=== PATIENT | female | born 1960 | race Caucasian/White ===

== ENCOUNTER 2016-06-30 21:43 | Emergency (ER) | payer OTHER ==
[2016-06-30 22:25] VITALS: O2SAT 96
--- NOTE | 2016-06-30 23:02 | ERPHSYRPT ---
- History of Present Illness Time Seen by Provider: 06/30/16 22:51 Source: patient, family Exam Limitations: no limitations Patient Subjective Stated Complaint: pt using dinning chairs as a baby gait, was on way to [place] lighting was dark and pt tripped and fell on her right side onto the chairs Triage Nursing Assessment: Pt c/o right side pain s/p fall this evening. Pt A&O x3, denies any SOB presently spo2 96% on RA, breath sounds clear throughout, [place]/warm dry, skin on right side shows no bruising at this time. However, can pick out red markings of the side of the chair that she fell on Physician History: 55-year-old white female arrives with complaint of pain in right anterior lateral ribs symptoms since 9:00 this evening. According to the patient she was walking she had been using chairs as a baby gait she apparently tripped over the chairs and landed on the chair striking her right anterior lateral ribs. Patient is complaining of pain in the right anterior ribs worse with movement she is not having any problems breathing she has no abdominal pain she has no dysuria or hematuria. Past medical history includes bipolar depression, high blood pressure, diabetes , anxiety, GERD. Past surgical history includes tubal ligation. Occurred: just prior to arrival (9:00 this evening) Reason for Fall: tripped (tripped over 2 chairs she used is a baby gatee), fell from standing pos Injuries/Pain Location: chest (Pain right anterior lateral ribs) Loss of Consciousness: no loss of consciousness Severity of Pain-Max: moderate Severity of Pain-Current: moderate Modifying Factors: Improves With: nothing Associated Symptoms (Fall): chest pain (pain right anterior ribs and right lateral ribs), No abdominal pain, No back pain, No confusion, No dizziness, No extremity injury, No headache, No lightheadedness, No muscle spasms, No nausea, No neck pain, No ringing in ears, No seizures, No shortness of breath, No slurred speech, No trouble walking, No vomiting, No vision changes Allergies/Adverse Reactions: ciprofloxacin [From Cipro] Allergy (Severe, Verified 06/30/16 22:42) Hives nausea azithromycin [From Zithromax] Adverse Reaction (Severe, Verified 06/30/16 22:42) Hives metformin Adverse Reaction (Severe, Verified 06/30/16 22:42) Diarrhea sulfamethoxazole [From Bactrim] Adverse Reaction (Severe, Verified 06/30/16 22: 42) Hives trimethoprim [From Bactrim] Adverse Reaction (Severe, Verified 06/30/16 22:42) Hives Home Medications: Aspirin 81 mg PO DAILY 11/06/14 [History] Cetirizine HCl [Zyrtec] 10 mg PO DAILY 11/06/14 [History] Clonazepam [Klonopin] 1 mg PO BID PRN 11/06/14 [History] Duloxetine HCl [Cymbalta] 60 mg PO DAILY 11/06/14 [History] Famotidine 20 mg [Pepcid 20 MG] 20 mg PO DAILY 11/06/14 [History] Glipizide 5 mg [Glucotrol 5 MG] 5 mg PO DAILY 11/06/14 [History] Lisinopril/Hydrochlorothiazide [Lisinopril-Hctz 20-25 mg Tab] 1 each PO DAILY [History] Tramadol HCl 50 mg [Ultram 50 mg] 50 mg PO Q6HPRN PRN 11/06/14 [History] Albuterol Sulfate [Proair Respiclick] 90 mcg IH [id number] PRN 06/30/16 [History] Aspirin [Aspirin EC] 81 mg PO DAILY 06/30/16 [History] Linagliptin [Tradjenta] 5 mg PO DAILY 06/30/16 [History] Pravastatin Sodium [Pravachol] 40 mg PO DAILY 06/30/16 [History] Hx Tetanus, Diphtheria Vaccination/Date Given: Yes Hx Influenza Vaccination/Date Given: No Hx Pneumococcal Vaccination/Date Given: No Immunizations Up to Date: Yes - Review of Systems Constitutional: No Fever, No Chills Eyes: No Symptoms Ears, Nose, & Throat: No Symptoms Respiratory: Other (pain right anterior and lateral ribs), No Cough, No Cyanosis , No Dyspnea, No Dyspnea on Exertion (MORA), No Stridor, No Wheezing Cardiac: Chest Pain (pain right anterior and lateral ribs with palpation and movement), No Edema, No Palpitations, No Syncope, No Orthopnea Abdominal/Gastrointestinal: No Abdominal Pain, No Nausea, No Vomiting, No Diarrhea Genitourinary Symptoms: No Dysuria Musculoskeletal: Fall, Other (pain right anterior lateral ribs with palpation and movement), No Back Pain, No Neck Pain Skin: No Rash Neurological: No Dizziness, No Focal Weakness, No Sensory Changes Psychological: No Symptoms Endocrine: No Symptoms All Other Systems: Reviewed and Negative - Past Medical History Pertinent Past Medical History: Yes Cardiac History: Hypertension Endocrine Medical History: Diabetes Type II GI Medical History: GERD Psycho-Social History: Anxiety, Depression - Past Surgical History Past Surgical History: Yes Female Surgical History: Tubal Ligation - Social History Smoking Status: Former smoker Exposure to second hand smoke: No Drug Use: none Patient Lives Alone: No - Female History Hx Last Menstrual Period: post - Nursing Vital Signs Nursing Vital Signs: Initial Vital Signs Temperature 97.9 F Temperature Source Oral Pulse Rate 75 Respiratory Rate 14 Pain Intensity 8 - Terril Coma Score Best Eye Response (Terril): (4) open spontaneously Best Verbal Response (Starla): (5) oriented Best Motor Response (Starla): (6) obeys commands [place] Total: 15 - Physical Exam General Appearance: moderate distress Head Injury: no evidence of injury Eye Exam: PERRL/EOMI ENT Exam: airway nml Neck Exam: normal inspection, No tenderness Respiratory/Chest Exam: normal breath sounds, rib tenderness (right anterior and lateral ribstend5.er with palpation and movement), No chest tenderness, No respiratory distress Cardiovascular Exam: normal heart sounds, regular rate/rhythm Gastrointestinal Exam: soft, No tenderness, No distention, No guarding, No ecchymosis Back Exam: normal inspection, No vertebral tenderness Extremity Exam: normal inspection, normal range of motion, pelvis stable, No deformities Peripheral Pulses: dorsalis-pedis (R): 2+, dorsalis-pedis (L): 2+ Neurologic Exam: alert, oriented x 3, cooperative, sensation nml, No motor deficits Skin Exam: normal color, warm, dry SpO2 Interpretation: normal (96%) SpO2: 96 Oxygen Delivery: Room Air - Course Nursing assessment & vital signs reviewed: Yes - Radiology Exams Right Ribs X-ray Interpretation: Interpreted by me, Negative, No Fracture Chest X-ray Interpretation: Interpreted by me, No Fracture, No Pneumonia, No Pneumothorax, Other (no acute disease process noted) Ordered Tests: Active Orders 24 hr Category Date Time Status CHEST 1 VIEW (PORTABLE) Stat Exams 06/30/16 22:55 Taken RIBS UNILATERAL Stat Exams 06/30/16 22:55 Taken CULTURE,URINE Stat Lab 07/01/16 00:26 Ordered UA W/ MICROSCOPIC Stat Lab 06/30/16 00:02 Completed Lab/Rad Data: Laboratory Results 06/30/16 Range/Units 00:02 Ur Collection Type CLEAN CATCH Urine Color YELLOW (YELLOW) Urine Appearance CLEAR (CLEAR) Urine pH 5.5 (5-6) Ur Specific [place] >=1.030 (1.005-1.025) Urine Protein 30 (Negative) Urine Glucose (UA) 100 (NEGATIVE) mg/dL Urine Ketones NEGATIVE (NEGATIVE) Urine Nitrite NEGATIVE (NEGATIVE) Urine Bilirubin NEGATIVE (NEGATIVE) Urine Urobilinogen 0.2 (0-1) mg/dL Urine WBC (Auto) TRACE (NEGATIVE) Urine RBC (Auto) NEGATIVE (0-5) Gerry/ul Urine Microscopic RBC 2-5 (0-2) /HPF Urine Microscopic WBC 25-50 (0-5) /HPF Ur Epithelial Cells MODERATE (FEW) /HPF Urine Bacteria MANY (NEGATIVE) /HPF Urine Mucus MODERATE (NEGATIVE) /HPF Specimen Received 07/01/16 0005 - Progress Progress: improved Progress Note: 06/30/16 23:02 This is a 55-year-old morbidly obese white female with history of diabetes high blood pressure anxiety depression and GERD. She arrives with complaint of pain in the right anterior ribs after falling at home at approximately 9 PM she states she tripped over a chair and landed on the chair she has pain with palpation movement breathing in the right anterior lateral ribs she is not short of breath she has no abdominal pain no nausea no vomiting. Denies other complaints. Patient is offered morphine ordered Toradol injection for pain she states she really doesn't want pain medications at this time she is on tramadol and clonazepam at home. She does want x-rays of her ribs Will also obtain a urinalysis on this patient. . 06/30/16 23:57 Patient's x-ray right ribs chest x-ray both negative for fractures no pneumothorax no pneumonias Patient does not want any pain medications at this time appears to be stable and not in acute distress. Awaiting urinalysis. 07/01/16 00:28 Patient's urine shows 25-50 white cells and 2-5 red cells per high-power field. Patient does not appear to be in acute distress. Will write for Macrobid to treat the patient's urine cultures are pending. Patient does not want any pain medications at this time. Or any prescriptions for pain medications at this time. - Departure Time of Disposition: 00:28 Departure Disposition: Home Clinical Impression: Rib pain on right side Accidental fall Qualifiers: Encounter type: initial encounter Qualified Code(s): W19.XXXA - Unspecified fall, initial encounter Contusion of rib on right side Qualifiers: Encounter type: initial encounter Qualified Code(s): S20.211A - Contusion of right front wall of thorax, initial encounter UTI (urinary tract infection) Qualifiers: Hematuria presence: without hematuria Condition: Fair Critical Care Time: No Instructions: Rib Contusion Additional Instructions: Return home. Plenty of fluids. Cold packs to contused areas 24-48 hours. Pain medications as prescribed by your family doctor or Tylenol as needed for pain. Macrobid 100 mg orally twice a day for 10 days. Follow-up with your family doctor. Return for acute distress or for severe symptoms. Prescriptions: Nitrofurantoin Macro 100 mg [Macrobid 100MG Capsule] 100 mg PO BID #20 capsule
[2016-07-01 00:17] LABS: COMPLETE URINE MICROSCOPIC? YES; Collection Type CLEAN CATCH; Mucus MODERATE /HPF (NEGATIVE); Ph 5.5 (5-6)
[2016-07-01 00:18] LABS: Bacteria MANY /HPF (NEGATIVE); Epithelial Cells MODERATE /HPF (FEW); WBC 25-50 /HPF (0-5)
[2016-07-01] MEDS ORDERED: Macrobid 100MG Capsule PO ONE (00:31)
[2016-07-01] MEDS ORDERED: Macrobid 100MG Capsule ONE (00:39)
[2016-07-01 01:00] VITALS: BP 145/67; PULSE 76
--- NOTE | 2016-07-01 09:48 | XRAY ---
Indication: Right-sided pain following fall. Comparison: November 05, 2007. Single frontal chest again demonstrates normal heart and lungs. Bony thorax intact.
--- NOTE | 2016-07-01 09:51 | XRAY ---
Indication: Pain following fall. Comparison: August 02, 2009. 2 views of the right ribs obtained. Again no bony, articular, or soft tissue abnormalities.
== END 2016-07-01 01:00 | disposition home or self-care (01) ==
LOC: ED 21:43
DX: R07.81 Pleurodynia (principal); S20.211A Contusion of right front wall of thorax, initial encounter; W19.XXXA Unspecified fall, initial encounter; N39.0 Urinary tract infection, site not specified
CPT/HCPCS: 71010; 71100; 81000; 87086; 99283; A9270-GY

== ENCOUNTER 2016-11-01 12:30 | Emergency (ER) | payer OTHER ==
[2016-11-01 12:40] VITALS: BP 131/80; PULSE 87; O2SAT 97
--- NOTE | 2016-11-01 13:30 | ERPHSYRPT ---
- History of Present Illness Time Seen by Provider: 11/01/16 13:25 Source: patient Exam Limitations: no limitations Patient Subjective Stated Complaint: pt states 2 days ago she stubbed 2nd and 3rd toes. pt states pain is not any better. Triage Nursing Assessment: pt pink, warm, dry. no bruising or swelling present. pedal pulse strong. Physician History: 55-year-old white female arrives with complaint of pain in her right second and third toe symptoms for 2 days she states she stubbed her toes she states continues to have pain in the toes she states she has some paresthesias in the toes as well. Past medical history includes diabetes type 2, high blood pressure, GERD, anxiety, depression Past surgical history includes tubal ligation Method of Injury: other (stubbed her toes right foot) Occurred: days ago (2 days ago) Quality: constant Severity of Pain-Max: moderate Severity of Pain-Current: mild Lower Extremities Pain: 2nd toe: right, 3rd toe: right Modifying Factors: Improves With: nothing Associated Symptoms: other (paresthesias right second and third toes) Allergies/Adverse Reactions: ciprofloxacin [From Cipro] Allergy (Severe, Verified 11/01/16 12:56) Hives nausea azithromycin [From Zithromax] Adverse Reaction (Severe, Verified 11/01/16 12:56) Hives metformin Adverse Reaction (Severe, Verified 11/01/16 12:56) Diarrhea sulfamethoxazole [From Bactrim] Adverse Reaction (Severe, Verified 11/01/16 12: 56) Hives trimethoprim [From Bactrim] Adverse Reaction (Severe, Verified 11/01/16 12:56) Hives Home Medications: Cetirizine HCl [Zyrtec] 10 mg PO DAILY 11/06/14 [History] Clonazepam [Klonopin] 1 mg PO BID PRN 11/06/14 [History] Duloxetine HCl [Cymbalta] 60 mg PO DAILY 11/06/14 [History] Famotidine 20 mg [Pepcid 20 MG] 20 mg PO DAILY 11/06/14 [History] Glipizide 5 mg [Glucotrol 5 MG] 10 mg PO DAILY 11/06/14 [History] Lisinopril/Hydrochlorothiazide [Lisinopril-Hctz 20-25 mg Tab] 1 each PO DAILY [History] Tramadol HCl 50 mg [Ultram 50 mg] 50 mg PO Q6HPRN PRN 11/06/14 [History] Albuterol Sulfate [Proair Respiclick] 90 mcg IH [id number] PRN 06/30/16 [History] Aspirin [Aspirin EC] 81 mg PO DAILY 06/30/16 [History] Linagliptin [Tradjenta] 5 mg PO DAILY 06/30/16 [History] Pravastatin Sodium [Pravachol] 40 mg PO DAILY 06/30/16 [History] Albuterol Sulfate [Ventolin Hfa] 18 gm IH DAILY 11/01/16 [History] Hx Tetanus, Diphtheria Vaccination/Date Given: Yes (up to date) Hx Influenza Vaccination/Date Given: No Hx Pneumococcal Vaccination/Date Given: No Immunizations Up to Date: Yes - Review of Systems Constitutional: No Fever, No Chills Eyes: No Symptoms Ears, Nose, & Throat: No Symptoms Respiratory: No Cough, No Dyspnea Cardiac: No Chest Pain, No Edema, No Syncope Abdominal/Gastrointestinal: No Abdominal Pain, No Nausea, No Vomiting, No Diarrhea Genitourinary Symptoms: No Dysuria Musculoskeletal: Other (pain right second and third toes) Skin: No Rash Neurological: No Dizziness, No Focal Weakness, No Sensory Changes Psychological: No Symptoms Endocrine: No Symptoms All Other Systems: Reviewed and Negative - Past Medical History Pertinent Past Medical History: Yes Cardiac History: Hypertension Endocrine Medical History: Diabetes Type II GI Medical History: GERD Psycho-Social History: Anxiety, Depression - Past Surgical History Past Surgical History: Yes Female Surgical History: Tubal Ligation - Social History Smoking Status: Former smoker Exposure to second hand smoke: No Drug Use: none Patient Lives Alone: No - Nursing Vital Signs Nursing Vital Signs: Initial Vital Signs Temperature 98.0 F 11/01/16 12:39 Pulse Rate 87 11/01/16 12:39 Respiratory Rate 18 11/01/16 12:39 Blood Pressure 131/80 11/01/16 12:39 O2 Sat by Pulse Oximetry 97 11/01/16 12:39 Pain Scale Pain Intensity 0 - Physical Exam General Appearance: alert Eyes, Ears, Nose, Throat Exam: moist mucous membranes Neck Exam: non-tender, supple Cardiovascular/Respiratory Exam: chest non-tender, normal breath sounds, regular rate/rhythm, no respiratory distress Gastrointestinal/Abdominal Exam: non-tender, guarding Hips Exam: bilateral: non-tender, normal inspection, normal range of motion, no evidence of injury Legs Exam: bilateral leg: non-tender, normal inspection, normal range of motion , no evidence of injury Knees Exam: bilateral knee: non-tender, normal inspection, normal range of motion, no evidence of injury Ankle Exam: bilateral ankle: non-tender, normal inspection, normal range of motion, no evidence of injury Foot Exam: right foot: other (left second and third toetender with palpation and movement, decreased range of motion left second and third toe secondary to pain, good capillary refill all toes, sensation intact to all toes), left foot: non-tender, normal inspection, normal range of motion DTR - Lower Extremities Exam: ankle (R): 2+, ankle (L): 2+ Neuro/Tendon Exam: normal sensation, normal motor functions Mental Status Exam: alert, oriented x 3, cooperative Skin Exam: normal color, warm, dry SpO2 Interpretation: normal (97%) SpO2: 97 Oxygen Delivery: Room Air - Course Nursing assessment & vital signs reviewed: Yes - Radiology Exams Right Foot X-ray Interpretation: Interpreted by me, Other (x-ray right foot: Nondisplaced fracture (oblique) right third proximal phalanx) Ordered Tests: Active Orders 24 hr Category Date Time Status FOOT (MINIMUM 3 VIEWS) Stat Exams 11/01/16 13:25 Taken - Progress Progress: improved Progress Note: 11/01/16 14:26 55-year-old white female arrives with complaint of pain in the right second and third toes for 2 days patient states she stubbed her toes she is noting pain which does not go away she has had some paresthesia of the right second and third toe. She denies any other complaints she states she does not want any pain medication she states she has pain medications at home she does not want any pain medications given in the emergency room. X-ray of the right third toe shows an oblique fracture through the right third proximal phalanx nondisplaced.. I have asked the patient's paramedics/nurse to sanjay tape the right second third and fourth toes patient already has a postop shoe. Will discharge patient and give patient a referral to Dr. Sauer she is to call his office and arrange an appointment. - Departure Time of Disposition: 14:28 Departure Disposition: Home Clinical Impression: Fracture of third toe, right, closed Qualifiers: Encounter type: initial encounter Qualified Code(s): S92.501A - Displaced unspecified fracture of right lesser toe(s), initial encounter for closed fracture Condition: Fair Critical Care Time: No Referrals: MARCIAL GUPTA MD [Primary Care Provider] - MATTEO SAUER [ACTIVE STAFF] - Instructions: Foot Fracture Additional Instructions: Return home. Ice and elevate your right foot 24-48 hours. Use postop shoe. Follow-up with Dr. Sauer. Call for an appointment Tylenol every 4 hours or Motrin every 6 hours as needed for pain.
--- NOTE | 2016-11-01 14:35 | XRAY ---
Exam: 3 views the right foot from 11/01/2016. Comparison: 3 views of the right foot from 06/28/2011. Indication: Stubbed third and fourth toes 2 days ago. Findings: AP, oblique, and lateral radiographs of the right foot were obtained. There is an acute oblique, nondisplaced fracture across the proximal shaft portion of the proximal phalanx of the right third toe. No malalignment is seen. The MTP joints and interphalangeal joints appear unremarkable. The remainder of the right foot reveals no other fracture or dislocation. There is moderate plantar and posterior right calcaneal spurring. The plantar right calcaneal spur appears larger than that seen on 06/28/2011. No radiopaque soft tissue foreign body is seen. Impression: 1. Essentially nondisplaced, oblique fracture of the proximal shaft portion of the proximal phalanx of the right third toe. No malalignment or involvement of the MTP joint or PIP joint is seen. 2. No other acute fracture or dislocation of the right foot is seen. 3. Moderate sized plantar and posterior right calcaneal spurring is seen.
== END 2016-11-01 15:12 | disposition home or self-care (01) ==
LOC: ED 12:30
DX: S92.501A Displaced unspecified fracture of right lesser toe(s), initial encounter for closed fracture (principal); E11.9 Type 2 diabetes mellitus without complications; I10 Essential (primary) hypertension; F41.9 Anxiety disorder, unspecified; W22.8XXA Striking against or struck by other objects, initial encounter; R20.2 Paresthesia of skin
CPT/HCPCS: 73630; 99283

== ENCOUNTER 2018-10-06 14:56 | Emergency (ER) | payer OTHER ==
[2018-10-06] MEDS ORDERED: Pepcid 20 MG VIAL IV ONE ×2 (15:06→15:36)
[2018-10-06] MEDS ORDERED: solu-MEDROL 125 MG IV ONE (15:06)
[2018-10-06] MEDS ORDERED: BENADRYL 50 MG/ML IV ONE (15:06)
[2018-10-06] MEDS ORDERED: DUONEB 0.5-3 MG/3 ml Neb IH ONE ×2 (15:06→15:35)
[2018-10-06] MEDS ORDERED: Sodium Chloride 0.9% 1000 ML 1,000 ML IV STA (15:06)
[2018-10-06 15:26] LABS: BASOPHIL % 0.5 % (0.0-0.4); Basophil (Absolute #) 0.07 (0-0.4); Eosinophil % 1.2 % (0.00-5.0); Eosinophil (Absolute #) 0.18 (0-0.5); Granulocyte Absolute (ANC) 8.93 (1.4-6.9); Granulocytes % 60.7 % (36.0-66.0); Hematocrit 44.8 % (35-47); Hemoglobin 15.6 gm/dl (12.0-16.0); Lymphocyte (Absolute #) 4.43 (1.0-4.6); Lymphocytes % 30.1 % (24.0-44.0); Mean Cell Volume 89.6 fl (78-100); Mean Corpuscular Hemoglobin 31.2 pg (26-32); Mean Corpuscular Hgb Concent. 34.8 g/dl (32-36); Mean Platelet Volume 11.5 fl (6-9.5); Monocyte (Absolute #) 1.11 (0.0-1.3); Monocytes % 7.5 % (0.0-12.0); Platelet Count 306 K/mm3 (150-450); Red Cell Distribution Width 13.9 % (11.5-14.0); White Blood Count 14.7 K/mm3 (4.0-10.5)
[2018-10-06] MEDS ORDERED: BENADRYL 50 MG/ML ONE (15:36)
[2018-10-06] MEDS ORDERED: solu-MEDROL 125 MG ONE (15:36)
[2018-10-06] MEDS ORDERED: Sodium Chloride 0.9% 1000 ML 1,000 ML ONE (15:36)
[2018-10-06 16:12] LABS: ALBUMIN 4.2 g/dL (3.5-5.0); ALKALINE PHOSPHATASE 107 U/L (38-126); BLOOD UREA NITROGEN 18 mg/dL (7-17); CHLORIDE 102 mmol/L (98-107); Calcium 9.7 mg/dL (8.4-10.2); Carbon Dioxide 25 mmol/L (22-30); Creatinine 1 0.93 mg/dL (0.52-1.04); Glucose 168 mg/dL (74-106); Potassium 3.6 mmol/L (3.5-5.1); SGOT/AST 25 U/L (14-36); SGPT/ALT 24 U/L (0-35); SODIUM 137 mmol/L (137-145); Total Protein 7.6 g/dL (6.3-8.2)
--- NOTE | 2018-10-06 18:25 | ERPHSYRPT ---
- History of Present Illness Source: patient Exam Limitations: no limitations Patient Subjective Stated Complaint: STUNG BY BEE ON RIGHT SIDE OF FACE AND NOW HAS SWELLING TO FACE AND CHEST FEELS TIGHT Triage Nursing Assessment: AMBULATED TO ROOM PER SELF. SKIN W/D, COLOR NORMAL, RESP NONLABORED. SLIGHT SWELLING NOTED TO RIGHT SIDE OF FACE WITH SMALL RED AREA. BREATH SOUNDS NORMAL, HEART TONES REGULAR. Physician History: Pt is a 57 y/o female that was stung by a bee to the L side of her face. Pt states, she has some numbness of the L side of face, and some chest pressure. Pt denies any difficulty breathing. No palpitations. No N/V/D or abdominal pain. No dysuria, frequency and urgency. Timing/Duration: today Quality: burning, itchy, painful Severity: mild Location: face (on the L face) Possible Causes: insect sting (Bee sting) Associated Symptoms: paresthesia (of the L face) Allergies/Adverse Reactions: ciprofloxacin [From Cipro] Allergy (Severe, Verified 11/01/16 12:56) Hives nausea azithromycin [From Zithromax] Adverse Reaction (Severe, Verified 11/01/16 12:56) Hives metformin Adverse Reaction (Severe, Verified 11/01/16 12:56) Diarrhea sulfamethoxazole [From Bactrim] Adverse Reaction (Severe, Verified 11/01/16 12: 56) Hives trimethoprim [From Bactrim] Adverse Reaction (Severe, Verified 11/01/16 12:56) Hives Home Medications: Cetirizine HCl [Zyrtec] 10 mg PO DAILY 11/06/14 [History] Duloxetine HCl [Cymbalta] 60 mg PO DAILY 11/06/14 [History] Famotidine 20 mg [Pepcid 20 MG] 20 mg PO DAILY 11/06/14 [History] Glipizide 5 mg [Glucotrol 5 MG] 10 mg PO DAILY 11/06/14 [History] Lisinopril/Hydrochlorothiazide [Lisinopril-Hctz 20-25 mg Tab] 1 each PO DAILY [History] Tramadol HCl 50 mg [Ultram 50 mg] 50 mg PO Q6HPRN PRN 11/06/14 [History] clonazePAM [Klonopin] 1 mg PO BID PRN 11/06/14 [History] Albuterol Sulfate [Proair Respiclick] 90 mcg IH [id number] PRN 06/30/16 [History] Aspirin [Aspirin EC] 81 mg PO DAILY 06/30/16 [History] Linagliptin [Tradjenta] 5 mg PO DAILY 06/30/16 [History] Pravastatin Sodium [Pravachol] 40 mg PO DAILY 06/30/16 [History] Albuterol Sulfate [Ventolin Hfa] 18 gm IH DAILY 11/01/16 [History] Hx Tetanus, Diphtheria Vaccination/Date Given: No Hx Influenza Vaccination/Date Given: No Hx Pneumococcal Vaccination/Date Given: No - Review of Systems Constitutional: No Fever, No Chills Eyes: No Symptoms Ears, Nose, & Throat: No Symptoms Respiratory: No Cough, No Dyspnea Cardiac: No Chest Pain, No Edema, No Syncope Abdominal/Gastrointestinal: No Abdominal Pain, No Nausea, No Vomiting, No Diarrhea Genitourinary Symptoms: No Dysuria Musculoskeletal: No Back Pain, No Neck Pain Neurological: No Dizziness, No Focal Weakness, No Sensory Changes - Past Medical History Pertinent Past Medical History: Yes Cardiac History: Hypertension Endocrine Medical History: Diabetes Type II GI Medical History: GERD Psycho-Social History: Anxiety, Depression - Past Surgical History Past Surgical History: Yes Female Surgical History: Tubal Ligation - Social History Smoking Status: Former smoker Exposure to second hand smoke: No Drug Use: none Patient Lives Alone: No - Female History Hx Now: No - Nursing Vital Signs Nursing Vital Signs: Initial Vital Signs Temperature 98.1 F 10/06/18 14:57 Pulse Rate 92 H 10/06/18 14:57 Respiratory Rate 16 10/06/18 14:57 Blood Pressure 136/89 10/06/18 14:57 O2 Sat by Pulse Oximetry 94 L 10/06/18 14:57 Pain Scale Pain Intensity 0 - Physical Exam General Appearance: no apparent distress, alert Eye Exam: PERRL/EOMI, eyes nml inspection Ears, Nose, Throat Exam: normal ENT inspection, pharynx normal, moist mucous membranes Neck Exam: normal inspection, non-tender, supple, full range of motion Respiratory Exam: normal breath sounds, lungs clear, No respiratory distress Cardiovascular Exam: regular rate/rhythm, normal heart sounds Gastrointestinal/Abdomen Exam: soft, mass, No tenderness Back Exam: normal inspection, normal range of motion, No CVA tenderness, No vertebral tenderness Extremity Exam: normal inspection, normal range of motion Neurologic Exam: alert, oriented x 3, cooperative, normal mood/affect, sensation nml, No motor deficits Skin Exam: normal color, warm, dry, other (small area on the L face where insect sting is seen.) SpO2: 94 - Course EKG Interpreted by Me: RATE (96 bpm), Other (early repolarization) Ordered Tests: Active Orders 24 hr Category Date Time Status CBC W DIFF Stat Lab 10/06/18 15:20 Completed CMP Stat Lab 10/06/18 15:20 Completed TROPONIN Q3H Lab 10/06/18 15:20 Completed TROPONIN Q3H Lab 10/06/18 18:11 Received TROPONIN Q3H Lab 10/06/18 21:15 Ordered Peak Expiratory Flow Rate DAILY RT 10/06/18 07:00 Completed Respiratory Therapy Assessment DAILY RT 10/07/18 07:00 Completed Medication Summary Discontinued Medications Generic Name Dose Route Start Last Admin Trade Name Freq PRN Reason Stop Dose Admin Albuterol/Ipratropium 3 ml 10/06/18 15:06 10/06/18 15:40 Duoneb 0.5-3 Mg/3 Ml Neb IH 10/06/18 15:07 3 ml STAT ONE Administration Albuterol/Ipratropium Confirm 10/06/18 15:35 Duoneb 0.5-3 Mg/3 Ml Neb Administered 10/06/18 15:36 Dose 3 ml IH .STK-MED ONE Diphenhydramine HCl 50 mg 10/06/18 15:06 10/06/18 15:43 Benadryl 50 Mg/Ml IV 10/06/18 15:07 50 mg STAT ONE Administration Diphenhydramine HCl Confirm 10/06/18 15:36 Benadryl 50 Mg/Ml Administered 10/06/18 15:37 Dose 50 mg .ROUTE .STK-MED ONE Famotidine 20 mg 10/06/18 15:06 10/06/18 15:43 Pepcid 20 Mg Vial IV 10/06/18 15:07 20 mg STAT ONE Administration Famotidine Confirm 10/06/18 15:36 Pepcid 20 Mg Vial Administered 10/06/18 15:37 Dose 20 mg IV .STK-MED ONE Sodium Chloride 1,000 mls @ 999 mls/hr 10/06/18 15:06 10/06/18 15:42 Sodium Chloride 0.9% 1000 Ml IV 10/06/18 16:06 999 mls/hr .Q1H1M STA Administration Sodium Chloride Confirm 10/06/18 15:36 Sodium Chloride 0.9% 1000 Ml Administered 10/06/18 15:37 Dose 1,000 mls @ ud .ROUTE .STK-MED ONE Methylprednisolone Sodium Succinate 125 mg 10/06/18 15:06 10/06/18 15:43 Solu-Medrol 125 Mg IV 10/06/18 15:07 125 mg STAT ONE Administration Methylprednisolone Sodium Succinate Confirm 10/06/18 15:36 Solu-Medrol 125 Mg Administered 10/06/18 15:37 Dose 125 mg .ROUTE .STK-MED ONE Lab/Rad Data: Laboratory Result Diagrams 10/06/18 15:20 10/06/18 15:20 Laboratory Results 10/06/18 10/06/18 10/06/18 Range/Units 15:20 15:20 15:20 WBC 14.7 H (4.0-10.5) K/mm3 RBC 5.00 (4.1-5.4) M/mm3 Hgb 15.6 (12.0-16.0) gm/dl Hct 44.8 (35-47) % MCV 89.6 (78-100) fl MCH 31.2 (26-32) pg MCHC 34.8 (32-36) g/dl RDW 13.9 (11.5-14.0) % Plt Count 306 (150-450) K/mm3 MPV 11.5 H (6-9.5) fl Gran % 60.7 (36.0-66.0) % Eos # (Auto) 0.18 (0-0.5) Absolute Lymphs (auto) 4.43 (1.0-4.6) Absolute Monos (auto) 1.11 (0.0-1.3) Lymphocytes % 30.1 (24.0-44.0) % Monocytes % 7.5 (0.0-12.0) % Eosinophils % 1.2 (0.00-5.0) % Basophils % 0.5 (0.0-0.4) % Absolute Granulocytes 8.93 H (1.4-6.9) Basophils # 0.07 (0-0.4) Sodium 137 (137-145) mmol/L Potassium 3.6 (3.5-5.1) mmol/L Chloride 102 (98-107) mmol/L Carbon Dioxide 25 (22-30) mmol/L Anion Gap 14.0 (5-15) MEQ/L BUN 18 H (7-17) mg/dL Creatinine 0.93 (0.52-1.04) mg/dL Estimated GFR > 60.0 ML/MIN Glucose 168 H (74-106) mg/dL Calcium 9.7 (8.4-10.2) mg/dL Total Bilirubin 0.50 (0.2-1.3) mg/dL AST 25 (14-36) U/L ALT 24 (0-35) U/L Alkaline Phosphatase 107 (38-126) U/L Troponin I < 0.012 (0.000-0.034) ng/mL Serum Total Protein 7.6 (6.3-8.2) g/dL Albumin 4.2 (3.5-5.0) g/dL - Progress Progress: improved Progress Note: 10/06/18 18:27 Pt was seen and examined. Secondary to paresthesias, I gave the pt Solu Medrol , Pepcid and Benadryl. Labs were normal, beside a mild leukocytosis. Pt is feeling well and her symptoms resolved. Pt is cleared for d/c, as her Troponins were negative x2. I will d/c pt on Medrol dose pack, and Benadryl on a PRN. Discussed with : Chi Will see patient in: office Counseled pt/family regarding: need for follow-up - Departure Departure Disposition: Home Clinical Impression: Bee sting Condition: Stable Critical Care Time: No Referrals: MARCIAL GUPTA MD [Primary Care Provider] - Additional Instructions: Take meds as ordered, and f/u with PCP. Prescriptions: Diphenhydramine HCl [Allergy Relief] 25 mg PO Q8H PRN PRN 5 Days #30 capsule PRN Reason: Allergies Methylprednisolone Packet [Medrol Dosepack] 4 mg PO UD #1 packet
[2018-10-06 19:06] VITALS: BP 126/73; PULSE 72; O2SAT 98
== END 2018-10-06 19:07 | disposition home or self-care (01) ==
LOC: ED 14:56
DX: R60.0 Localized edema (principal); T63.441A Toxic effect of venom of bees, accidental (unintentional), initial encounter; R20.0 Anesthesia of skin; Z79.899 Other long term (current) drug therapy; E11.9 Type 2 diabetes mellitus without complications; I10 Essential (primary) hypertension; F41.8 Other specified anxiety disorders
CPT/HCPCS: 36000; 36415; 80053; 84484; 85025; 94150; 94640; 96374; 96375; 99284; J1200; J2930; A9270-GY

== ENCOUNTER 2021-05-07 22:19 | Emergency (ER) | payer OTHER ==
[2021-05-07] MEDS ORDERED: Pepcid 20 MG VIAL IV ONE ×2 (22:57→23:20)
[2021-05-07] MEDS ORDERED: BENADRYL 50 MG/ML IV ONE (22:57)
[2021-05-07] MEDS ORDERED: BENADRYL 50 MG/ML ONE (23:20)
--- NOTE | 2021-05-08 00:25 | ERPHSYRPT ---
- History of Present Illness Time Seen by Provider: 05/07/21 22:30 Source: patient Exam Limitations: no limitations Patient Subjective Stated Complaint: "I think I'm allergic to my medicine." Triage Nursing Assessment: patient reported that she is allergic to her newly prescribed trulicity. Patient reported having pain and swelling to the right upper arm, headache, and tingling to the right side of the face. She denied dizziness, visual disturbances, shortness of breath, chest pain, N/V/D. Pupils 3mm billateral. Oral mucosa pink/moist without ulcerations/lesions. Neck supple without lymphadenopathy or stridor. Symmetrical chest expansion. heart tones S1/S2 RRR without extra sounds. Lungs clear with adequate aiflow and no adventitious sounds. Right upper arm with slight redness and swelling around the injection site. No noted urticaria. Physician History: Patient is a 60-year-old female presents to emergency department with concerns for allergic reaction. Patient states that she received an injection of T rulicity today. Shortly thereafter she developed swelling and tenderness at the area of injection. She also developed a headache and facial tingling. No shortness of breath or chest pain. No hives. No generalized pruritus. Symptoms are mild to moderate in intensity. Patient did not take Benadryl or any other medications to help her reaction. Patient voiced no other concerns. Timing/Duration: today Severity: moderate Modifying Factors: Improves With: nothing Allergies/Adverse Reactions: ciprofloxacin [From Cipro] Allergy (Severe, Verified 05/07/21 22:36) Hives nausea dulaglutide [From Trulicity] Allergy (Verified 05/07/21 22:36) azithromycin [From Zithromax] Adverse Reaction (Severe, Verified 05/07/21 22:36) Hives metformin Adverse Reaction (Severe, Verified 05/07/21 22:36) Diarrhea sulfamethoxazole [From Bactrim] Adverse Reaction (Severe, Verified 05/07/21 22:36) Hives trimethoprim [From Bactrim] Adverse Reaction (Severe, Verified 05/07/21 22:36) Hives Home Medications: Cetirizine HCl [Zyrtec] 10 mg PO DAILY 11/06/14 [History] Duloxetine HCl [Cymbalta] 60 mg PO DAILY 11/06/14 [History] Famotidine 20 mg [Pepcid 20 MG] 20 mg PO DAILY 11/06/14 [History] Glipizide 5 mg [Glucotrol 5 MG] 10 mg PO DAILY 11/06/14 [History] Lisinopril/Hydrochlorothiazide [Lisinopril-Hctz 20-25 mg Tab] 1 each PO DAILY 11/06/14 [History] Tramadol HCl 50 mg [Ultram 50 mg] 50 mg PO Q6HPRN PRN 11/06/14 [History] clonazePAM [Klonopin] 1 mg PO BID PRN 11/06/14 [History] Albuterol Sulfate [Proair Respiclick] 90 mcg IH [id number] PRN 06/30/16 [History] Aspirin [Aspirin EC] 81 mg PO DAILY 06/30/16 [History] Linagliptin [Tradjenta] 5 mg PO DAILY 06/30/16 [History] Pravastatin Sodium [Pravachol] 40 mg PO DAILY 06/30/16 [History] Albuterol Sulfate [Ventolin Hfa] 18 gm IH DAILY 11/01/16 [History] Hx Tetanus, Diphtheria Vaccination/Date Given: Yes Hx Influenza Vaccination/Date Given: No Hx Pneumococcal Vaccination/Date Given: No Travel Risk - International Travel Have you traveled outside of the country in past 3 weeks: No - Coronavirus Screening Are you exhibiting any of the following symptoms?: No Close contact with a COVID-19 positive Pt in past 14-21 Days: No - Vaccine Status Have you recieved a Covid-19 vaccination: Yes [employer]: [place] - Review of Systems Constitutional: No Symptoms, No Fever, No Chills Eyes: No Symptoms Ears, Nose, & Throat: No Symptoms Respiratory: No Symptoms, No Cough, No Dyspnea Cardiac: No Symptoms, No Chest Pain, No Edema, No Syncope Abdominal/Gastrointestinal: No Symptoms, No Abdominal Pain, No Nausea, No Vomiting, No Diarrhea Genitourinary Symptoms: No Symptoms, No Dysuria Musculoskeletal: No Symptoms, No Back Pain, No Neck Pain Skin: No Symptoms, No Rash Neurological: No Symptoms, No Dizziness, No Focal Weakness, No Sensory Changes Psychological: No Symptoms Endocrine: No Symptoms Hematologic/Lymphatic: No Symptoms Immunological/Allergic: No Symptoms All Other Systems: Reviewed and Negative - Past Medical History Pertinent Past Medical History: Yes Cardiac History: Hypertension Endocrine Medical History: Diabetes Type II GI Medical History: GERD Psycho-Social History: Anxiety, Depression - Past Surgical History Past Surgical History: Yes Female Surgical History: Tubal Ligation - Social History Smoking Status: Former smoker Exposure to second hand smoke: No Drug Use: none Patient Lives Alone: No - Female History Hx Now: No - Nursing Vital Signs Nursing Vital Signs: Initial Vital Signs Temperature 98.6 F 05/07/21 22:21 Pulse Rate 102 H 05/07/21 22:21 Respiratory Rate 18 05/07/21 22:21 Blood Pressure 151/67 05/07/21 22:21 O2 Sat by Pulse Oximetry 98 05/07/21 22:21 Pain Scale Pain Intensity 0 - Physical Exam General Appearance: no apparent distress, alert Eye Exam: PERRL/EOMI, eyes nml inspection Ears, Nose, Throat Exam: normal ENT inspection, TMs normal, pharynx normal, moist mucous membranes Neck Exam: normal inspection, non-tender, supple, full range of motion Respiratory Exam: normal breath sounds, lungs clear, No respiratory distress Cardiovascular Exam: regular rate/rhythm, normal heart sounds, normal peripheral pulses Gastrointestinal/Abdomen Exam: soft, normal bowel sounds, No tenderness, No mass Back Exam: normal inspection, normal range of motion, No CVA tenderness, No vertebral tenderness Extremity Exam: normal inspection, normal range of motion, pelvis stable Neurologic Exam: alert, oriented x 3, cooperative, normal mood/affect, nml cerebellar function, nml station & gait, sensation nml, No motor deficits Skin Exam: normal color, warm, dry, No rash Lymphatic Exam: No adenopathy SpO2 Interpretation: normal SpO2: 98 O2 Delivery: Room Air - Course Nursing assessment & vital signs reviewed: Yes Ordered Tests: Active Orders 24 hr Category Date Time Status IV Insertion STAT Care 05/07/21 22:57 Active Medication Summary Discontinued Medications Generic Name Dose Route Start Last Admin Trade Name Yungq PRN Reason Stop Dose Admin Diphenhydramine HCl 25 mg 05/07/21 22:57 05/07/21 23:21 Diphenhydramine Hcl 50 Mg/Ml Vial IV 05/07/21 22:58 25 mg STAT ONE Administration Diphenhydramine HCl Confirm 05/07/21 23:20 Diphenhydramine Hcl 50 Mg/Ml Vial Administered 02/14/22 23:21 Dose 50 mg .ROUTE .STK-MED ONE Famotidine 20 mg 05/07/21 22:57 05/07/21 23:21 Famotidine 20 Mg/1 Vial IV 05/07/21 22:58 20 mg STAT ONE Administration Famotidine Confirm 05/07/21 23:20 Famotidine 20 Mg/1 Vial Administered 05/07/21 23:21 Dose 20 mg IV .STK-MED ONE Ketorolac Tromethamine 30 mg 05/08/21 00:57 05/08/21 01:03 Ketorolac Tromethamine 30 Mg/Ml Inj IV 05/08/21 00:58 30 mg STAT ONE Administration Ketorolac Tromethamine Confirm 05/08/21 01:02 Ketorolac Tromethamine 30 Mg/Ml Inj Administered 05/08/21 01:03 Dose 30 mg .ROUTE .STK-MED ONE - Progress Progress: improved Progress Note: Patient reassessed. Symptoms resolved. Headache significantly improved. But he states he is ready for discharge. Patient observed for over 4 hours. Patient will call her for a ride home. Vital stable. We will forward a prescription for epinephrine autoinjector to patient's pharmacy. Patient voices no other complaints or concerns at this time. Patient agrees to follow-up with her primary care doctor within 48 hours for evaluation. Portions of this note were created with voice recognition technology. There may be grammatical, spelling, punctuation or sound alike errors 05/08/21 02:44 05/08/21 03:13 Counseled pt/family regarding: diagnosis, need for follow-up - Departure Departure Disposition: Home Clinical Impression: Allergic reaction, Headache Condition: Stable Critical Care Time: No Referrals: MARCIAL GUPTA MD [Primary Care Provider] - Follow up/PCP as directed Additional Instructions: Discharge/Care Plan CIRA RUBIO was seen on 05/08/21 in the Emergency Room. The patient was counseled regarding Diagnosis,Lab results, Imaging studies, need for follow up and when to return to the Emergency Room. Prescriptions given: Discharge Note I have spoken with the patient and/or caregivers. I have explained the patient's condition, diagnosis and treatment plan based on the information available to me at this time. I have answered the patient's and/or caregiver's questions and addressed any concerns. The patient and/or caregivers have as good understanding of the patient's diagnosis, condition and treatment plan as can be expected at this point. The vital signs have been stable. The patient's condition is stable and appropriate for discharge from the emergency department. The patient will pursue further outpatient evaluation with the primary care physician or other designated or consulting physician as outlined in the discharge instructions. The patient and/or caregivers are agreeable to this plan of care and follow-up instructions have been explained in detail. The patient and/or caregivers have received these instruction. The patient/and or caregivers are aware that any significant change in condition or worsening of symptoms should prompt an immediate return to this or the closest emergency department or call 911. Prescriptions: Epinephrine [Auvi-Q] 0.3 mg IJ DAILY PRN 1 Days #2 unit PRN Reason: Allergies
[2021-05-08] MEDS ORDERED: TORAdol 30 mg Injection IV ONE (00:57)
[2021-05-08] MEDS ORDERED: TORAdol 30 mg Injection ONE (01:02)
[2021-05-08 02:45] VITALS: O2SAT 98
[2021-05-08 03:20] VITALS: BP 120/50; PULSE 90
== END 2021-05-08 03:25 | disposition home or self-care (01) ==
LOC: ED 22:19
DX: R51.9 Headache, unspecified (principal); T50.995A Adverse effect of other drugs, medicaments and biological substances, initial encounter; I10 Essential (primary) hypertension; E11.9 Type 2 diabetes mellitus without complications; Z79.84 Long term (current) use of oral hypoglycemic drugs; K21.9 Gastro-esophageal reflux disease without esophagitis; Z79.891 Long term (current) use of opiate analgesic; Z79.899 Other long term (current) drug therapy
CPT/HCPCS: 36000; 96374; 96375; 99284; J1200; J1885

== ENCOUNTER 2021-08-05 20:59 | Emergency (ER) | payer OTHER ==
[2021-08-05] MEDS ORDERED: XYLOCAINE 1% HCL 20 ML MDV IJ ONE (21:00)
--- NOTE | 2021-08-05 21:08 | ERPHSYRPT ---
- History of Present Illness Time Seen by Provider: 08/05/21 21:07 Source: patient, family Exam Limitations: no limitations Physician History: This is a 60-year-old white female patient of Dr. Gupta who has a history of hypertension, diabetes, elevated cholesterol, gastroesophageal reflux disease and anxiety/depression. Patient was relatively recently diagnosed with bilateral ear infections. She was given antibiotic eardrops which she used and completed approximately 2 weeks ago. In the last 2 weeks patient does feel some pressure in her ears and has had intermittent dizziness. She had contacted her primary care physician who called in meclizine for her. She used it and it seemed to be helpful for her. However in the last few days she did not require the meclizine and has not used it. However, today her dizziness was worse than typical. She used the meclizine and it did not seem to help much. She has no shortness of breath. She has no chest pain. She has no nausea vomiting diarrhea or flulike symptoms. She has no abdominal pain. Timing/Duration: today, week(s) (2) Severity: mild (To moderate) Character of Deficits: none Deficits: no difficulties Baseline/Normal Cognition: alert oriented x 3 Current Cognition: alert oriented x 3 Baseline Gait: walks w/o assistance Associated Symptoms: other (She has some dizziness.), No nausea, No vomiting, No weakness, No numbness/tingling in legs/feet, No seizures, No slurred speech, No trouble walking, No vision changes, No chest pain Allergies/Adverse Reactions: ciprofloxacin [From Cipro] Allergy (Severe, Verified 08/05/21 21:19) Hives nausea dulaglutide [From Trulicity] Allergy (Verified 08/05/21 21:19) azithromycin [From Zithromax] Adverse Reaction (Severe, Verified 08/05/21 21:19) Hives metformin Adverse Reaction (Severe, Verified 08/05/21 21:19) Diarrhea sulfamethoxazole [From Bactrim] Adverse Reaction (Severe, Verified 08/05/21 21:19) Hives trimethoprim [From Bactrim] Adverse Reaction (Severe, Verified 08/05/21 21:19) Hives Home Medications: Cetirizine HCl [Zyrtec] 10 mg PO DAILY 11/06/14 [History] Duloxetine HCl [Cymbalta] 60 mg PO DAILY 11/06/14 [History] Famotidine 20 mg [Pepcid 20 MG] 20 mg PO DAILY 11/06/14 [History] Glipizide 5 mg [Glucotrol 5 MG] 10 mg PO DAILY 11/06/14 [History] Lisinopril/Hydrochlorothiazide [Lisinopril-Hctz 20-25 mg Tab] 1 each PO DAILY 11/06/14 [History] Tramadol HCl 50 mg [Ultram 50 mg] 50 mg PO Q6HPRN PRN 11/06/14 [History] clonazePAM [Klonopin] 1 mg PO BID PRN 11/06/14 [History] Albuterol Sulfate [Proair Respiclick] 90 mcg IH [id number] PRN 06/30/16 [History] Aspirin [Aspirin EC] 81 mg PO DAILY 06/30/16 [History] Linagliptin [Tradjenta] 5 mg PO DAILY 06/30/16 [History] Pravastatin Sodium [Pravachol] 40 mg PO DAILY 06/30/16 [History] Albuterol Sulfate [Ventolin Hfa] 18 gm IH DAILY 11/01/16 [History] Hx Tetanus, Diphtheria Vaccination/Date Given: Yes Hx Influenza Vaccination/Date Given: No Hx Pneumococcal Vaccination/Date Given: No Travel Risk - International Travel Have you traveled outside of the country in past 3 weeks: No - Coronavirus Screening Are you exhibiting any of the following symptoms?: No Close contact with a COVID-19 positive Pt in past 14-21 Days: No - Vaccine Status Have you recieved a Covid-19 vaccination: Yes Track Maintainer: [place] - Review of Systems Constitutional: No Symptoms Eyes: No Symptoms Ears, Nose, & Throat: No Symptoms Respiratory: No Symptoms Cardiac: No Symptoms Abdominal/Gastrointestinal: No Symptoms Genitourinary Symptoms: No Symptoms Musculoskeletal: No Symptoms Skin: No Symptoms Neurological: Dizziness Psychological: No Symptoms Endocrine: No Symptoms Hematologic/Lymphatic: No Symptoms Immunological/Allergic: No Symptoms All Other Systems: Reviewed and Negative - Past Medical History Pertinent Past Medical History: Yes Cardiac History: Hypertension Endocrine Medical History: Diabetes Type II GI Medical History: GERD Psycho-Social History: Anxiety, Depression - Past Surgical History Past Surgical History: Yes Female Surgical History: Tubal Ligation - Social History Smoking Status: Former smoker Exposure to second hand smoke: No Drug Use: none Patient Lives Alone: No - Nursing Vital Signs Nursing Vital Signs: Initial Vital Signs Temperature 98.2 F 08/05/21 21:19 Pulse Rate 83 08/05/21 21:19 Respiratory Rate 18 08/05/21 21:19 Blood Pressure 134/73 08/05/21 21:19 O2 Sat by Pulse Oximetry 96 08/05/21 21:19 Pain Scale Pain Intensity 0 - [place] Coma Scale Best Eye Response ([place]): (4) open spontaneously Best Verbal Response ([place]): (5) oriented Best Motor Response ([place]): (6) obeys commands Starla Total: 15 - Physical Exam General Appearance: no apparent distress, alert, anxiety, obese Eye Exam: bilateral eye: normal inspection, PERRL, EOMI Ears, Nose, Throat Exam: pharynx normal, moist mucous membranes, TM abnormal (R), other (Patient has bilateral ear canals that are red. Her right tympanic membrane seems to have mild pressure/bulge present the left appears normal) Neck Exam: normal inspection, non-tender, supple, full range of motion Respiratory: normal breath sounds, lungs clear, airway intact, No chest tenderness, No respiratory distress Cardiovascular: regular rate/rhythm, normal heart sounds, normal peripheral pulses Gastrointestinal: soft, normal bowel sounds, No tenderness Pelvic Exam: not done Rectal Exam: not done Extremity Exam: normal inspection, normal range of motion, pelvis stable - Course Nursing assessment & vital signs reviewed: Yes Ordered Tests: Active Orders 24 hr Category Date Time Status HEAD WITHOUT CONTRAST [CT] Stat Exams 08/05/21 21:44 Taken POCT GLUCOSE Stat Lab 08/05/21 22:03 Completed UA W/RFX CULTURE Stat Lab 08/05/21 22:36 Completed Medication Summary Discontinued Medications Generic Name Dose Route Start Last Admin Trade Name Freq PRN Reason Stop Dose Admin Ceftriaxone Sodium 1,000 mg 08/05/21 22:58 Ceftriaxone Sodium 1000 Mg Inj Vial IM 08/05/21 22:59 STAT ONE Methylprednisolone Sodium 0 mg 08/05/21 22:59 Succinate 125 mg/ Sterile IM 08/05/21 23:00 Water 2 ml STAT ONE Lab/Rad Data: Laboratory Results 08/05/21 08/05/21 Range/Units 22:36 22:03 POC Glucometer 196 H (74 to 106) mg/dL Urinalys Dipstick Clnc MAIN [facility] Urine Color YELLOW (YELLOW) Urine Appearance CLEAR (CLEAR) Urine pH 7.0 (5-6) Ur Specific [place] 1.015 (1.005-1.025) POC Urine Protein Conf NEGATIVE (Negative) Urine Ketones NEGATIVE (NEGATIVE) Urine Nitrite NEGATIVE (NEGATIVE) Urine Bilirubin NEGATIVE (NEGATIVE) Urine Urobilinogen 0.2 (0-1) mg/dL Urine Leukocytes NEGATIVE (NEGATIVE) Urine WBC (Auto) 0-2 (0-5) /HPF Urine RBC (Auto) 0-2 (0-2) /HPF U Epithel Cells (Auto) NONE (FEW) /HPF Urine Bacteria (Auto) NONE SEEN (NEGATIVE) /HPF Urine RBC NEGATIVE (0-5) Gerry/ul Ur Culture Indicated? NO Urine Glucose >=1000 (NEGATIVE) mg/dL - Progress Progress: improved Progress Note: 08/05/21 23:31 CT of head without contrast shows no acute intracranial pathology or abnormalit y. Counseled pt/family regarding: diagnosis, need for follow-up, rad results - Departure Departure Disposition: Home Clinical Impression: Bilateral otitis media, Dizziness, Hyperglycemia Condition: Stable Critical Care Time: No Referrals: MARCIAL GUPTA MD [Primary Care Provider] - Follow up/PCP as directed Additional Instructions: Drink plenty fluids. Use your meclizine as prescribed. Take your antibiotics as prescribed. Monitor your blood sugar closely and treat it accordingly. Call your primary care doctor tomorrow morning to make arranges for follow-up evaluation and for further management. Prescriptions: Cephalexin Mh 500 mg [Keflex 500 mg] 500 mg PO TID #21 cap
[2021-08-05 22:05] VITALS: O2SAT 98
[2021-08-05] MEDS ORDERED: Rocephin 1000 MG INJ IM ONE (22:58)
[2021-08-05] MEDS ORDERED: solu-MEDROL 125 MG, Sterile H2O 10 ml 2 ML IM ONE ×2 (22:59)
[2021-08-05 23:10] LABS: RBC 0-2 /HPF (0-2); WBC 0-2 /HPF (0-5)
[2021-08-05 23:11] LABS: Appearance CLEAR (CLEAR); Bilirubin NEGATIVE (NEGATIVE); Dipstick done @ ? MAIN LAB; Glucose >=1000 mg/dL (NEGATIVE); Ketones NEGATIVE (NEGATIVE); Nitrite NEGATIVE (NEGATIVE); Protein,Urine Dip NEGATIVE (Negative); RBC NEGATIVE Ery/ul (0-5); Specific Gravity 1.015 (1.005-1.025); Urobilinogen 0.2 mg/dL (0-1)
[2021-08-05 23:12] LABS: Bacteria NONE SEEN /HPF (NEGATIVE); Urine Cultured Indicated? NO
[2021-08-05] MEDS ORDERED: Rocephin 1000 MG INJ ONE (23:32)
[2021-08-05] MEDS ORDERED: solu-MEDROL ONE (23:32)
[2021-08-05] MEDS ORDERED: Sterile H2O 10 ml IJ ONE (23:33)
[2021-08-06 00:23] VITALS: BP 106/53; PULSE 74
--- NOTE | 2021-08-06 08:41 | XRAY ---
Indication: Intermittent dizziness 2 weeks. Multiple contiguous has images obtained through the head without contrast. Comparison: None Normal appearing brain parenchyma, ventricles, and bony calvarium for patient's age. Visualized paranasal sinuses and mastoid air cells are clear. Impression: Normal CT head without contrast exam. Comment: Preliminary interpretation made by [facility]. No critical discrepancy.
== END 2021-08-06 00:24 | disposition home or self-care (01) ==
LOC: ED 20:59
DX: H66.93 Otitis media, unspecified, bilateral (principal); R42 Dizziness and giddiness; E11.65 Type 2 diabetes mellitus with hyperglycemia; I10 Essential (primary) hypertension; E78.5 Hyperlipidemia, unspecified; Z79.84 Long term (current) use of oral hypoglycemic drugs; Z79.891 Long term (current) use of opiate analgesic; Z79.899 Other long term (current) drug therapy
CPT/HCPCS: 70450; 81015; 82947; 96372; 99284; J0696; J2930